=== PATIENT | female | born 1955 | race Two or more races ===

== ENCOUNTER 2017-11-06 21:13 | Emergency (ER) | payer MEDICAID, OTHER ==
[~2017-11-06] VITALS: Ht 157.5 cm; Wt 54.4 kg
--- NOTE | 2017-11-06 21:34 | NUR ---
PT RECEIVED FROM HOME BIB FAMILY C/O ON AND OFF CHEST PAIN X2 HOURS FAMILY STATING "IT WAS REALLY BAD 10/10 PAIN BUT RIGHT NOW 0/10, SHE WAS SWEATING AND CRYING". NO SOB NOTED AT THIS TIME. VSS NAD A/OX4. WILL CONTINUE TO MONITOR FOR ANY CHANGES
--- NOTE | 2017-11-06 21:38 | NUR ---
EKG AT BEDSIDE
--- NOTE | 2017-11-06 22:20 | NUR ---
[employer] DIRECTOR AT BEDSIDE
[2017-11-06 22:39] LABS: BASOPHILS % (AUTO) 0.4 % (0.0-2.0); EOSINOPHILS % (AUTO) 0.3 % (0.0-6.0); HEMATOCRIT 32 % (33-45); HEMOGLOBIN 11.2 g/dL (11.5-14.8); LYMPHOCYTES # (AUTO) 0.6 /CMM (0.8-4.8); LYMPHOCYTES % (AUTO) 9.7 % (20.0-44.0); MEAN CORPUSCULAR HEMOGLOBIN 31 PG (26.0-33.0); MEAN CORPUSCULAR HGB CONC 35 g/dl (31.0-36.0); MEAN CORPUSCULAR VOLUME 89 fL (82-100); MONOCYTES # (AUTO) 0.3 /CMM (0.1-1.30); MONOCYTES % (AUTO) 4.2 % (2.0-12.0); NEUTROPHILS # (AUTO) 5.5 /CMM (1.8-8.9); NEUTROPHILS % (AUTO) 85.4 % (43.0-81.0); PLATELET COUNT (AUTO) 149 /CMM (150-450); RED BLOOD CELL COUNT(AUTO) 3.64 MIL/uL (4.0-5.2); WHITE BLOOD COUNT (AUTO) 6.5 K/uL (4.3-11.0)
[2017-11-06 22:50] LABS: CALCIUM, SERUM 7.9 mg/dL (8.5-10.1); CARBON DIOXIDE 28 mmol/L (21-32); CHLORIDE 103 mmol/L (98-107); CREATININE 0.7 mg/dL (0.6-1.3); GLUCOSE 121 mg/dL (74-106); POTASSIUM 3.2 mmol/L (3.5-5.1); SODIUM SERUM 141 mmol/L (136-145); UREA NITROGEN, BLOOD 13 mg/dL (7-18)
[2017-11-06 22:53] LABS: INR 1.03 (0.87-1.13); PROTHROMBIN TIME 10.7 SECS (9.5-12.7)
--- NOTE | 2017-11-06 22:53 | NUR ---
Patient does not wish to proceed with medical care recommended by LASHA KERN. Patient given information related to possible complications, up to and including , which could occur as a result of leaving the hospital at this time. Patient verbalizes understanding of risks involved due to leaving against medical advice. Patient has signed AMA form.
[2017-11-06 22:58] LABS: TROPONIN I < 0.017 ng/mL (0.00-0.056)
--- NOTE | 2017-11-06 23:54 | NUR ---
IV removed. Catheter intact and site benign. Pressure and 4x4 applied to site. No bleeding noted. Patient LEFT AMA. Written and verbal after care instructions given. Patient verbalizes understanding of instruction. PT AMBULATED OUT WITH A STEADY GAIT. VSS. PT WAS INSTRUCTED TO RETURN IF CONDITIONS RETURN OR WORSEN.
[2017-11-06 23:57] VITALS: BP 145/77
== END 2017-11-06 23:54 | disposition left against medical advice (07) ==
LOC: ER 21:14
DX: R07.9 Chest pain, unspecified (principal)
CPT/HCPCS: 36415; 71045-TC; 80048-TC; 84484-TC; 85025-TC; 85730-TC; A4606; Z7610